=== PATIENT | female | born 1935 | race Caucasian/White ===

== ENCOUNTER 2016-11-02 14:28 | Inpatient (IN) | payer MEDICARE, OTHER ==
[~2016-11-02] VITALS: Ht 157.5 cm; Wt 65.0 kg
[2016-11-02] MEDS ORDERED: MORPHINE SULFATE 4 MG/ML, 1ML IVPush PRN ×2 (15:30→17:30)
[2016-11-02] MEDS ORDERED: ONDANSETRON 2MG/ML, 2ML IVPush ONE (15:30)
[2016-11-02] MEDS ORDERED: SODIUM CHLORIDE FLUSH 10ML SYR IVF ONE (15:30)
[2016-11-02 15:35] LABS: ASPARTATE AMINO TRANSFERASE 21 U/L (15-37); BLOOD UREA NITROGEN 36 mg/dL (7-18)
[2016-11-02] MEDS ORDERED: LOSA25TA5 PO (17:26)
[2016-11-02] MEDS ORDERED: ESTR1TAB15 PO (17:26)
[2016-11-02] MEDS ORDERED: LOVA40TA2 PO (17:26)
[2016-11-02] MEDS ORDERED: ACETAMINOPHEN 325 MG TABLET PO PRN (17:30)
[2016-11-02] MEDS ORDERED: GUAIFENESIN/DM 200-20MG, 10ML UDC PO PRN (17:30)
[2016-11-02] MEDS ORDERED: ONDANSETRON 2MG/ML, 2ML IVP PRN (17:30)
[2016-11-02] MEDS ORDERED: ZOLPIDEM 5MG TABLET PO PRN (17:30)
[2016-11-02] MEDS ORDERED: ENOXAPARIN 40 MG/0.4 ML SQ SCH (17:30)
[2016-11-02] MEDS ORDERED: DOCUSATE 100 MG CAPSULE PO PRN (17:30)
[2016-11-02] MEDS ORDERED: ONDANSETRON ODT 4 MG PO PRN (17:30)
[2016-11-02] MEDS ORDERED: POLYETHYLENE GLYCOL 17 GM PACKET PO PRN (17:30)
[2016-11-02] MEDS ORDERED: ONDANSETRON 2MG/ML, 2ML ONE (17:40)
[2016-11-02] MEDS ORDERED: LABETALOL 5MG/ML, 20ML IV PRN (18:00)
[2016-11-02] MEDS ORDERED: SINCALIDE (KINEVAC) 5 MCG ONE (20:12)
[2016-11-02] MEDS: LOVASTATIN 40 MG TABLET PO SCH ×2 (21:00→21:22)
[2016-11-02 21:04] VITALS: BP 113/57
[2016-11-02] MEDS: SODIUM CHLORIDE 0.9% 1,000 ML IV SCH (21:21)
[2016-11-02] MEDS: METRONIDAZOLE PMX 500MG/100ML 100 ML IV SCH (21:21)
[2016-11-03 04:18] VITALS: BP 115/66
[2016-11-03] MEDS: METRONIDAZOLE PMX 500MG/100ML 100 ML IV SCH ×3 (04:46→20:50)
[2016-11-03 04:54] LABS: BLOOD UREA NITROGEN 33 mg/dL (7-18)
[2016-11-03 04:55] VITALS: BP 143/89
[2016-11-03 04:58] LABS: ASPARTATE AMINO TRANSFERASE 20 U/L (15-37)
[2016-11-03] MEDS: SODIUM CHLORIDE 0.9% 1,000 ML IV SCH ×2 (06:25→15:43)
[2016-11-03 07:21] VITALS: BP 96/56
[2016-11-03] MEDS: ESTRADIOL 1 MG TABLET PO SCH (08:06)
[2016-11-03 12:38] VITALS: BP 133/68
[2016-11-03 20:18] VITALS: BP 145/57
[2016-11-03] MEDS: LOVASTATIN 40 MG TABLET PO SCH (20:50)
[2016-11-03] MEDS ORDERED: ENOXAPARIN 30 MG/0.3 ML SQ SCH (21:30)
[2016-11-04] MEDS: SODIUM CHLORIDE 0.9% 1,000 ML IV SCH ×3 (00:44→18:44)
[2016-11-04 02:35] VITALS: BP 132/59
[2016-11-04] MEDS: METRONIDAZOLE PMX 500MG/100ML 100 ML IV SCH ×3 (04:55→21:44)
[2016-11-04 06:24] LABS: ASPARTATE AMINO TRANSFERASE 20 U/L (15-37); BLOOD UREA NITROGEN 19 mg/dL (7-18)
[2016-11-04] MEDS ORDERED: MIDAZOLAM 1 MG/ML, 2ML ONE (07:17)
[2016-11-04] MEDS ORDERED: FENTANYL PF 250 MCG/5ML ONE (07:17)
[2016-11-04 07:22] VITALS: BP 160/69
[2016-11-04] MEDS ORDERED: BUPIVACAINE/PF-EPI 0.5% 1:200K ONE (07:22)
[2016-11-04] MEDS ORDERED: ONDANSETRON 2MG/ML, 2ML ONE (07:50)
[2016-11-04] MEDS ORDERED: PROPOFOL 10 MG/ML, 20ML ONE (07:50)
[2016-11-04] MEDS ORDERED: ROCURONIUM 10 MG/ML ONE (07:50)
[2016-11-04] MEDS ORDERED: GLYCOPYRROLATE 0.2MG/1ML ONE (07:50)
[2016-11-04] MEDS ORDERED: DEXAMETHASONE 4 MG/ML, 1ML ONE (07:50)
[2016-11-04] MEDS ORDERED: CEFOTETAN 2 GM ONE (07:50)
[2016-11-04] MEDS ORDERED: NEOSTIGMINE 1 MG/ML, 10ML ONE (07:50)
[2016-11-04] MEDS ORDERED: ONDANSETRON 2MG/ML, 2ML IVPush PRN (08:00)
[2016-11-04] MEDS ORDERED: hydrALAzine 20 MG/ML, 1ML IV PRN (08:00)
[2016-11-04] MEDS ORDERED: PROMETHAZINE 25 MG/ML, 1ML IV PRN (08:00)
[2016-11-04] MEDS ORDERED: LABETALOL 5MG/ML, 20ML IV PRN (08:00)
[2016-11-04] MEDS ORDERED: OXYcodone 5 MG/5 ML ORAL.SOL UDC PO PRN (08:00)
[2016-11-04] MEDS ORDERED: HYDROmorphone 1 MG/ML, 1ML IV PRN (08:00)
[2016-11-04] MEDS ORDERED: METOCLOPRAMIDE 5 MG/ML, 2ML IV PRN (08:00)
[2016-11-04] MEDS ORDERED: MEPERIDINE/PF 25MG/0.5ML IVPush PRN (08:00)
[2016-11-04] MEDS ORDERED: FENTANYL PF 100 MCG/2ML IV PRN (08:00)
[2016-11-04] MEDS ORDERED: BUPIVACAINE/PF-EPI 0.5% 1:200K INFIL ONE (08:14)
[2016-11-04] MEDS ORDERED: OXYcodone 5 MG/5 ML ORAL.SOL UDC ONE (09:06)
[2016-11-04] MEDS ORDERED: MORPHINE SULFATE 4 MG/ML, 1ML IV PRN (10:00)
[2016-11-04] MEDS ORDERED: ONDANSETRON 2MG/ML, 2ML IV PRN (10:30)
[2016-11-04 13:16] VITALS: BP 109/43
[2016-11-04] MEDS: ESTRADIOL 1 MG TABLET PO SCH (13:16)
[2016-11-04] MEDS: OXYcodone/APAP 5/325MG TABLET PO PRN ×3 (13:23→23:52)
[2016-11-04 14:09] LABS: TOTAL IRON BINDING CAPACITY 215 mcg/dL (250-450)
[2016-11-04] MEDS ORDERED: LORazepam 1MG TABLET PO PRN (17:30)
[2016-11-04] MEDS ORDERED: LORazepam 2 MG/ML, 1ML IV PRN ×5 (17:30)
[2016-11-04 20:00] VITALS: BP 139/68
[2016-11-04] MEDS: LOVASTATIN 40 MG TABLET PO SCH (22:02)
[2016-11-05 00:17] VITALS: BP 144/65
[2016-11-05] MEDS: SODIUM CHLORIDE 0.9% 1,000 ML IV SCH ×2 (02:56→11:58)
[2016-11-05 04:51] LABS: ASPARTATE AMINO TRANSFERASE 47 U/L (15-37); BLOOD UREA NITROGEN 15 mg/dL (7-18)
[2016-11-05] MEDS: METRONIDAZOLE PMX 500MG/100ML 100 ML IV SCH ×2 (04:57→13:28)
[2016-11-05] MEDS: OXYcodone/APAP 5/325MG TABLET PO PRN ×3 (04:59→15:43)
[2016-11-05 06:50] VITALS: BP 127/71
[2016-11-05] MEDS ORDERED: ENOXAPARIN 30 MG/0.3 ML SQ SCH (07:00)
[2016-11-05] MEDS: ESTRADIOL 1 MG TABLET PO SCH (07:52)
[2016-11-05 12:34] VITALS: BP 135/72
[2016-11-05] MEDS ORDERED: OXYC1TAB7 PO (14:38)
== END 2016-11-05 16:02 | disposition home or self-care (01) | DRG 417 ==
LOC: ED 16:24 → EDIP 16:25 → ED 16:47 → 3NE 17:55 → 4NOR 11-04 09:39
PROVIDERS: ADMIT Hospitalist
PROC: 0FT44ZZ Resection of Gallbladder, Percutaneous Endoscopic Approach (ICD-10-PCS; principal; 2016-11-04 08:00)
DX: K80.10 Calculus of gallbladder with chronic cholecystitis without obstruction (principal); N17.0 Acute kidney failure with tubular necrosis; E43 Unspecified severe protein-calorie malnutrition; E87.1 Hypo-osmolality and hyponatremia; D50.9 Iron deficiency anemia, unspecified; Z68.26 Body mass index [BMI] 26.0-26.9, adult; E78.00 Pure hypercholesterolemia, unspecified; E78.5 Hyperlipidemia, unspecified; E86.0 Dehydration; E87.5 Hyperkalemia; H91.90 Unspecified hearing loss, unspecified ear; I12.9 Hypertensive chronic kidney disease with stage 1 through stage 4 chronic kidney disease, or unspecified chronic kidney disease; K59.00 Constipation, unspecified; K66.0 Peritoneal adhesions (postprocedural) (postinfection); K66.8 Other specified disorders of peritoneum; K76.0 Fatty (change of) liver, not elsewhere classified; N18.9 Chronic kidney disease, unspecified; Z79.890 Hormone replacement therapy; Z87.891 Personal history of nicotine dependence; Z90.710 Acquired absence of both cervix and uterus; Z79.899 Other long term (current) drug therapy
CPT/HCPCS: 36415; 76700; 78227; 80053; 81001; 82607; 82746; 83540; 83550; 83690; 85025; 87086; 88304; 96374; J1100; J1650; J2250; J2405; J2704; J2710; J3010; J3490; A9537; C9898; J2805; J7030; S0074